=== PATIENT | male | born 1960 | race American Indian/Alaskan Native ===

== ENCOUNTER 2021-07-18 07:37 | Emergency (ER) | payer SELFPAY ==
[2021-07-18] MEDS ORDERED: ASPIRIN 325 MG TAB PO ONE (07:49)
[2021-07-18 08:48] LABS: Basophils % (Auto) 0.4 % (0.0-1.8); Eosinophils # (Auto) 0.3 K/mm3 (0.0-0.4); Eosinophils % (Auto) 4.8 % (0.0-4.3); Hematocrit 45.4 % (35.5-45.6); Hemoglobin 15.2 gm/dl (11.8-15.2); Lymphocytes # (Auto) 1.7 K/mm3 (1.2-5.4); Lymphocytes % (Auto) 25.8 % (13.4-35.0); Mean Corpuscular HGB Conc 34 % (32-34); Mean Corpuscular Volume 92 fl (84-94); Monocytes # (Auto) 0.5 K/mm3 (0.0-0.8); Monocytes % (Auto) 7.5 % (0.0-7.3); Platelet Count 231 K/mm3 (140-440); Red Blood Count 4.96 M/mm3 (3.65-5.03); Red Cell Distribution Width 11.6 % (13.2-15.2)
--- NOTE | 2021-07-18 08:51 | XRay Report ---
CHEST 2 VIEWS INDICATION / CLINICAL INFORMATION: chest pain/MITCHELL. FINDINGS: SUPPORT DEVICES: None. HEART / MEDIASTINUM: No significant abnormality. LUNGS / PLEURA: No significant pulmonary or pleural abnormality. No pneumothorax. ADDITIONAL FINDINGS: No significant additional findings. IMPRESSION: 1. No acute findings. Signer Name: Bob Darling MD Signed: 07/18/2021 8:47 AM Workstation Name: [employer]
[2021-07-18 08:54] LABS: Alanine Aminotransferase 22 units/L (7-56); Albumin 4.7 g/dL (3.9-5); BUN/Creatinine Ratio 17; Blood Urea Nitrogen 19 mg/dL (9-20); Calcium 9.5 mg/dL (8.4-10.2); Hemolysis Index 21
--- NOTE | 2021-07-18 12:19 | Emergency Department Report ---
ED General Adult HPI - General Chief complaint: Dyspnea/Respdistress Stated complaint: short of breath Time Seen by Provider: 07/18/21 12:16 Source: patient, RN notes reviewed Mode of arrival: Ambulatory Limitations: No Limitations - History of Present Illness Initial comments: Primary CARE doctor: Dr. Jose F Asher This patient is a 61-year-old gentleman who denies significant past medical history, presenting to the ER today with a complaint of painless shortness of breath. It is now resolved. The symptoms started yesterday. The patient reports having had similar symptoms a few months ago, and they resolve spontaneously. No exacerbating relieving factors. No tobacco smoke products. No pertinent family history. Denies travel, surgery, immobilization, DVT/PE risk factors. Review of systems otherwise negative at this time -: Sudden, days(s) Consistency: now resolved Improves with: none Worsens with: none Associated Symptoms: denies other symptoms - Related Data Previous Rx's Medication Instructions Recorded Last Taken Type Amlodipine Besylate [Norvasc] 5 mg PO QDAY #30 tab 07/18/21 Unknown Rx Allergies Allergy/AdvReac Type Severity Reaction Status Date / Time No Known Allergies Allergy Verified 07/18/21 12:23 ED Review of Systems ROS: Stated complaint: CHEST PAIN/MITCHELL Other details as noted in HPI Constitutional: denies: fever Eyes: denies: eye discharge, vision change ENT: denies: epistaxis Respiratory: shortness of breath. denies: cough Cardiovascular: denies: chest pain, palpitations, dyspnea on exertion Gastrointestinal: denies: abdominal pain, nausea, vomiting, hematemesis, melena, hematochezia Genitourinary: denies: dysuria Musculoskeletal: denies: back pain Skin: denies: lesions Neurological: denies: weakness Hematological/Lymphatic: denies: easy bleeding ED Past Medical Hx - Medications Home Medications: Home Medications Medication Instructions Recorded Confirmed Last Taken Type Amlodipine Besylate [Norvasc] 5 mg PO QDAY #30 tab 07/18/21 Unknown Rx ED Physical Exam - General Limitations: No Limitations General appearance: alert, in no apparent distress - Head Head exam: Present: atraumatic, normocephalic - Eye Eye exam: Present: normal appearance, EOMI. Absent: nystagmus - ENT ENT exam: Present: normal exam, normal orophraynx, mucous membranes moist, normal external ear exam - Neck Neck exam: Present: normal inspection, full ROM. Absent: tenderness, meningismus - Respiratory Respiratory exam: Present: normal lung sounds bilaterally. Absent: respiratory distress, wheezes, rales, rhonchi, stridor, decreased breath sounds - Cardiovascular Cardiovascular Exam: Present: regular rate, normal rhythm, normal heart sounds. Absent: bradycardia, tachycardia, irregular rhythm, systolic murmur, diastolic murmur, rubs, gallop - GI/Abdominal GI/Abdominal exam: Present: soft. Absent: distended, tenderness, guarding, rigid, pulsatile mass - Rectal Rectal exam: Present: deferred - Extremities Exam Extremities exam: Present: normal inspection, full ROM, other (2+ pulses noted in the bilateral upper and lower extremities. There is no palpable cord. negative Homans sign. Muscular compartments are soft. The pelvis is stable.). Absent: pedal edema, calf tenderness - Back Exam Back exam: Present: normal inspection, full ROM. Absent: tenderness, CVA tenderness (R), CVA tenderness (L), paraspinal tenderness, vertebral tenderness - Neurological Exam Neurological exam: Present: alert, oriented X3, normal gait, other (No facial droop. Tongue midline. Extraocular movements intact bilaterally. Facial sensation intact to light touch in V1, V2, V3 distribution bilaterally. 5 and a 5 strength in 4 extremities. Sensation intact to light touch in 4 extremities.). Absent: motor sensory deficit - Psychiatric Psychiatric exam: Present: flat affect - Skin Skin exam: Present: warm, dry, intact, normal color. Absent: rash ED Course Vital Signs 07/18/21 07/18/21 07/18/21 07:47 12:24 12:25 Temperature 98.9 F 98.7 F Pulse Rate 95 H 87 Respiratory 20 18 Rate Blood Pressure 187/109 156/86 [Right] O2 Sat by Pulse 95 97 99 Oximetry O2 Sat by Pulse Oximetry [ Digit-Finger] 07/18/21 13:46 Temperature Pulse Rate Respiratory Rate Blood Pressure [Right] O2 Sat by Pulse Oximetry O2 Sat by Pulse 100 Oximetry [ Digit-Finger] - Reevaluation(s) Reevaluation #1: 07/18/21 13:44 Differential diagnosis, including but not limited to: Pneumonia, CHF, pulmonary embolism, anemia, acute VA Assessment and plan: 61-year-old gentleman, who was afebrile, with reassuring vital signs, with improving hypertension, who is not currently tachycardic, tachypneic or hypoxic, who denies DVT and pulmonary embolism risk factors, who is low risk by Wells criteria for pulmonary embolism, low risk for major adverse cardiac event as per heart score, presenting with resolved shortness of breath which started yesterday. Troponin negative x2. Patient resting comfortably in stretcher, and in no acute distress. Doubt PE, but D-dimer sent given left axis deviation and left anterior fascicular block on EKG. Reassess once D-dimer has resulted. If negative as anticipated, start Norvasc, follow-up with outpatient primary care and/or cardiology for abnormal EKG and elevated blood pressure. Patient thus far resting comfortably in stretcher, in no acute distress, saturating at 100% on room air. 07/18/21 14:03 D-dimer negative. Patient resting comfortably. Discharged with outpatient follow-up. Return precautions are reviewed - Pulse Oximetry Interpretation Digit-Finger Initial Pulse Oximetry Readin O2 Sat by Pulse Oximetry: 100 Actions Taken: none ED Medical Decision Making - Lab Data Result diagrams: 07/18/21 08:02 07/18/21 08:02 Vital Signs 07/18/21 07/18/21 07/18/21 07:47 12:24 12:25 Temperature 98.9 F 98.7 F Pulse Rate 95 H 87 Respiratory 20 18 Rate Blood Pressure 187/109 156/86 [Right] O2 Sat by Pulse 95 97 99 Oximetry Lab Results 07/18/21 07/18/21 07/18/21 Range/Units 08:02 08:02 10:50 WBC 6.5 (4.5-11.0) K/mm3 RBC 4.96 (3.65-5.03) M/mm3 Hgb 15.2 (11.8-15.2) gm/dl Hct 45.4 (35.5-45.6) % MCV 92 (84-94) fl MCH 31 (28-32) pg MCHC 34 (32-34) % RDW 11.6 L (13.2-15.2) % Plt Count 231 (140-440) K/mm3 Lymph % (Auto) 25.8 (13.4-35.0) % [place] % (Auto) 7.5 H (0.0-7.3) % Eos % (Auto) 4.8 H (0.0-4.3) % Baso % (Auto) 0.4 (0.0-1.8) % Lymph # (Auto) 1.7 (1.2-5.4) K/mm3 [place] # (Auto) 0.5 (0.0-0.8) K/mm3 Eos # (Auto) 0.3 (0.0-0.4) K/mm3 Baso # (Auto) 0.0 (0.0-0.1) K/mm3 Seg Neutrophils % 61.5 (40.0-70.0) % Seg Neutrophils # 4.0 (1.8-7.7) K/mm3 Sodium 140 (137-145) mmol/L Potassium 4.2 (3.6-5.0) mmol/L Chloride 103.3 (98-107) mmol/L Carbon Dioxide 25 (22-30) mmol/L Anion Gap 16 mmol/L BUN 19 (9-20) mg/dL Creatinine 1.1 (0.8-1.3) mg/dL Estimated GFR > 60 ml/min BUN/Creatinine Ratio 17 % Glucose 117 H (75-100) mg/dL Calcium 9.5 (8.4-10.2) mg/dL Total Bilirubin 0.30 (0.1-1.2) mg/dL AST 19 (5-40) units/L ALT 22 (7-56) units/L Alkaline Phosphatase 104 (35-129) units/L Troponin T < 0.010 < 0.010 (0.00-0.029) ng/mL Total Protein 7.4 (6.3-8.2) g/dL Albumin 4.7 (3.9-5) g/dL Albumin/Globulin Ratio 1.7 % - EKG Data -: EKG Interpreted by Pa EKG shows normal: sinus rhythm Rate: normal - EKG Data When compared to previous EKG there are: previous EKG unavailable 07/18/21 13:41 The EKG is interpreted at 07: 5 1 Sinus rhythm, 97 bpm. Left axis deviation, normal P wave axis, left ventricular hypertrophy, right bundle branch block, left anterior fascicular block. Abnormal EKG. Not a STEMI. There is no prior for comparison. - Radiology Data Radiology results: pending, report reviewed, image reviewed CHEST 2 VIEWS INDICATION / CLINICAL INFORMATION: chest pain/MITCHELL. FINDINGS: SUPPORT DEVICES: None. HEART / MEDIASTINUM: No significant abnormality. LUNGS / PLEURA: No significant pulmonary or pleural abnormality. No pneumothorax. ADDITIONAL FINDINGS: No significant additional findings. IMPRESSION: 1. No acute findings. Signer Name: Bob Darling MD Signed: 07/18/2021 7:47 AM Workstation Name: [employer] Critical care attestation.: If time is entered above; I have spent that time in minutes in the direct care of this critically ill patient, excluding procedure time. ED Disposition Clinical Impression: Elevated blood pressure reading, History of dyspnea Disposition: HOME / SELF CARE / HOMELESS Is pt being admited?: No Does the pt Need Aspirin: No Condition: Stable Additional Instructions: Please avoid consumption of alcohol, tobacco and smoke products. Least participate in physical activities as tolerated. Patient is found to have high blood pressure while here in the emergency room, and nonspecifically abnormal EKG. 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 Please return to the emergency room right away with new pain, worsened pain, vesna ration of pain, projectile vomiting, change in mental status, confusion, inability tolerate liquid feeds, new, worsened or different symptoms not present on the initial emergency room evaluation Prescriptions: Amlodipine Besylate [Norvasc] 5 mg PO QDAY #30 tab Referrals: MALINDA ASHER MD [Referring] - 3-5 Days [facility] [Provider Group] - 3-5 Days Heart Score - HEART Score History: Slightly suspicious EKG: Non-specific Age: 45-65 Risk factors: 1-2 risk factors Troponin: < normal limit HEART Score: 3 - EKG Read Time Time EKG Completed: 08:00 EKG Read Time: 08:00 - Critical Actions Critical Actions: 0-3 pts:0.9-1.7%risk of adverse cardiac event.Candidate for discharge
[2021-07-18] MEDS ORDERED: ASPIRIN 81 MG TAB CHEW ONE (12:22)
[2021-07-18] MEDS ORDERED: amLODIPine 5 MG TAB PO ONE (12:26)
[2021-07-18 14:40] VITALS: BP 128/88
--- NOTE | 2021-07-19 13:42 | Electrocardiograph Report ---
[facility] Test Date: 2021-07-18 Test Time: 07:51:00 Pat Name: GEOVANNI JORDAN Department: Room: Gender: M [employer] Dispatcher: RHINA : 1960 Requested By: ED DOC Order Number: [id number] Reading MD: Jannet Madrid Measurements Intervals [place] Rate: 97 P: 77 VT: 162 QRS: -69 QRSD: 101 T: 75 QT: 384 QTc: 488 Interpretive Statements Sinus rhythm Biatrial enlargement Incomplete RBBB and LAFB Left ventricle hypertrophy No previous ECG available for comparison Electronically Signed On 07-19-2021 13:42:42 EDT by Jannet Madrid
== END 2021-07-18 14:40 | disposition home or self-care (01) ==
LOC: ED 07:37
DX: R03.0 Elevated blood-pressure reading, without diagnosis of hypertension (principal); R06.00 Dyspnea, unspecified; Z79.899 Other long term (current) drug therapy
CPT/HCPCS: 36415; 71046; 80053; 84484; 85025; 85379; 93005; 99284